=== PATIENT | male | born 1970 | race African-American/Black ===

== ENCOUNTER 2016-11-13 07:07 | Emergency (ER) | payer BC ==
[2016-11-13] MEDS ORDERED: HYDROcodone/Acetaminophen 10/325 mg Tablet ONE (08:04)
--- NOTE | 2016-11-13 10:35 | RAD ---
RIGHT WRIST 3 VIEWS: DATE: 11/13/16. FINDINGS: There is a subtle fracture through the distal radius which is nondisplaced. An unusual juan of bon e is seen at the distal end of the ulna. I cannot exclude an injury here, though this might be old. The carpals appear intact. IMPRESSION: Acute nondisplaced fracture of the distal radius. Questionable ulnar injury. CODE T POS: HOME
== END 2016-11-13 08:14 | disposition home or self-care (01) ==
LOC: BURERS 07:07
DX: M25.531 Pain in right wrist (principal); V80.010A Animal-rider injured by fall from or being thrown from horse in noncollision accident, initial encounter